=== PATIENT | male | born 1935 | race Caucasian/White ===

== ENCOUNTER 2016-08-05 18:10 | Inpatient (IN) | payer MEDICARE ==
--- NOTE | 2016-08-05 18:55 | ER Document Report ---
ED Medical Screen (RME) - General Chief Complaint: General Weakness Stated Complaint: CHILLS/WEAKNESS/HEADACHE Time Seen by Provider: 08/05/16 18:47 Notes: The patient is a 81-year-old male, past medical history COPD, CAD s/p 2 stents, tremors/possible seizures, presents with 1 day of feeling off balance and generalized weakness. He was noticing that every time he stands, is falling off to the side. In addition, he had a diffuse mild headache that resolved after taking 3 baby ASA. He is usually short of breath at baseline due to his COPD. He denies current headache, increasing shortness of breath, chest pain, fevers, nausea, vomiting, numbness, tingling, focal weakness or urinary symptoms. PE: Full strength and sensation in all 4 extremities, no restricted distress, lungs clear to auscultation bilaterally, tachycardia I have greeted and performed a rapid initial assessment of this patient. A comprehensive ED assessment and evaluation of the patient, analysis of test results and completion of the medical decision making process will be conducted by additional ED providers. TRAVEL OUTSIDE OF THE [place] IN LAST 30 DAYS: No - Related Data Allergies/Adverse Reactions: codeine Allergy (Verified 08/05/16 18:20) Past Medical History Renal/ Medical History: Denies: Hx Peritoneal Dialysis Physical Exam - Vital signs Vitals: Temp 98.4 F 08/05/16 18:20 Course - Vital Signs Vital signs: Temp Pulse Resp BP Pulse Ox 98.4 F 116 H 20 148/57 H 87 L 08/05/16 18:20 08/05/16 18:23 08/05/16 18:23 08/05/16 18:23 08/05/16 18:23
[2016-08-05 19:45] LABS: HEMATOCRIT 43.3 % (37.9-51.0); HEMOGLOBIN 14.1 g/dL (13.5-17.0); MEAN CORPUSCULAR HEMOGLOBIN 28.6 pg (27.0-33.4); MEAN CORPUSCULAR HGB CONC 32.6 g/dL (32.0-36.0); MEAN CORPUSCULAR VOLUME 88 fl (80-97); RED BLOOD COUNT 4.93 10^6/uL (4.35-5.55); RED CELL DISTRIBUTION WIDTH 17.9 % (11.5-14.0); WHITE BLOOD COUNT 13.1 10^3/uL (4.0-10.5)
[2016-08-05 20:10] LABS: ANION GAP 15 (5-19); BLOOD UREA NITROGEN 17 mg/dL (7-20); CALCIUM 9.2 mg/dL (8.4-10.2); CARBON DIOXIDE 28 mmol/L (22-30); CHLORIDE 96 mmol/L (98-107); CREATINE KINASE 70 U/L (55-170); CREATININE RESULT 1.12 mg/dL (0.52-1.25); GLUCOSE 155 mg/dL (75-110); POTASSIUM 4.2 mmol/L (3.6-5.0); SODIUM 139.1 mmol/L (137-145)
[2016-08-05 20:19] LABS: BAND NEUTROPHILS % (MANUAL) 8 % (3-5); BASOPHILS % (MANUAL) 0 % (0-2); EOSINOPHILS % (MANUAL) 1 % (0-6); LYMPHOCYTES % (MANUAL) 5 % (13-45); TOTAL CELLS COUNTED 100
[2016-08-05 20:24] LABS: APPEARANCE,URINE SLIGHTLY-CLOUDY; BILIRUBIN,URINE NEGATIVE (NEGATIVE); GLUCOSE, URINE NEGATIVE (NEGATIVE); KETONES,URINE NEGATIVE (NEGATIVE); LEUKOCYTE ESTERASE,URINE NEGATIVE (NEGATIVE); NITRITE,URINE NEGATIVE (NEGATIVE); PROTEIN,URINE 100 mg/dL (NEGATIVE); URINE SPECIFIC GRAVITY 1.029; UROBILINOGEN,URINE NEGATIVE mg/dL (<2.0)
[2016-08-05 20:27] LABS: ANISOCYTOSIS 1+; OVALOCYTES SLIGHT; POIKILOCYTOSIS SLIGHT; POLYCHROMASIA SLIGHT; TOXIC GRANULATION SLIGHT; TROPONIN I < 0.012 ng/mL
[2016-08-05 20:28] LABS: PLATELET CLUMPS PRESENT
[2016-08-05] MEDS ORDERED: LEVOFLOXACIN 750 MG/D5W RTU 150 ML IV ONE (20:38)
[2016-08-05] MEDS ORDERED: CEFTRIAXONE 1 GM/D5W RTU 50 ML IV ONE (20:40)
--- NOTE | 2016-08-05 20:43 | ER Document Report ---
ED General - General Chief Complaint: General Weakness Stated Complaint: CHILLS/WEAKNESS/HEADACHE Time Seen by Provider: 08/05/16 18:47 Notes: Patient is a 81-year-old male comes emergency department for chief complaint of feeling weak, feeling chills, and barely being able to stand up without falling over since yesterday. states that he always seems to be falling towards the left side. He denies any focal numbness or weakness, no change in mental status, no change in respiratory status. Patient also vomited once after arrival to the emergency department. Patient denies any abdominal parenchymal flank pain, he states he had a headache but this resolved after he took aspirin before coming to the ED. Patient has COPD, not on home oxygen, patient states his normal oxygen saturation is about 90% on room air. TRAVEL OUTSIDE OF THE [place] IN LAST 30 DAYS: No - Related Data Allergies/Adverse Reactions: codeine Allergy (Verified 08/05/16 18:20) Past Medical History - General Information source: Patient, Relative - Social History Smoking Status: Former Smoker Frequency of alcohol use: None Drug Abuse: None Lives with: Spouse/Significant other Family History: Reviewed & Not Pertinent Patient has suicidal ideation: No Patient has homicidal ideation: No - Past Medical History Cardiac Medical History: Reports: Hx Coronary Artery Disease Pulmonary Medical History: Reports: Hx COPD Renal/ Medical History: Denies: Hx Peritoneal Dialysis Past Surgical History: Reports: Hx Cardiac Catheterization - Immunizations Immunizations up to date: Yes Hx Diphtheria, Pertussis, Tetanus Vaccination: Yes Review of Systems - Review of Systems Constitutional: See HPI EENT: No symptoms reported Cardiovascular: No symptoms reported Respiratory: No symptoms reported Gastrointestinal: No symptoms reported Genitourinary: No symptoms reported Male Genitourinary: No symptoms reported Musculoskeletal: No symptoms reported Skin: No symptoms reported Hematologic/Lymphatic: No symptoms reported Neurological/Psychological: See HPI Physical Exam - Vital signs Vitals: Temp 98.4 F 08/05/16 18:20 Interpretation: Normal - General General appearance: Other - Patient appears slightly under the weather, appears tired but remains responsive and oriented In distress: None - HEENT Head: Normocephalic, Atraumatic Eyes: Normal Pupils: PERRL - Respiratory Respiratory status: No respiratory distress Chest status: Nontender Breath sounds: Decreased air movement - Decreased breath sounds bilaterally with a few coarse breath sounds Chest palpation: Normal - Cardiovascular Rhythm: Regular, Tachycardia Heart sounds: Normal auscultation, S1 appreciated, S2 appreciated Murmur: No - Abdominal Inspection: Normal Distension: No distension Bowel sounds: Normal Tenderness: Nontender. No: Tender, Guarding Organomegaly: No organomegaly - Back Back: Normal, Nontender. No: Tender - Extremities General upper extremity: Normal inspection, Nontender, Normal color, Normal ROM , Normal temperature General lower extremity: Normal inspection, Nontender, Normal color, Normal ROM , Normal temperature, Normal weight bearing. No: Ash's sign - Neurological Neuro grossly intact: Yes Cognition: Normal Orientation: AAOx4 [place] Coma Scale Eye Opening: Spontaneous [place] Coma Scale Verbal: Oriented [place] Coma Scale Motor: Obeys Commands [place] Coma Scale Total: 15 Speech: Normal Cranial nerves: Normal Cerebellar coordination: Normal Motor strength normal: LUE, RUE, LLE, RLE Additional motor exam normals: Equal cloth picker Sensory: Normal - Psychological Associated symptoms: Normal affect, Normal mood - Skin Skin Temperature: Warm Skin Moisture: Dry Skin Color: Normal Course - Re-evaluation Re-evalutation: Patient is neurologically intact, oriented, has a negative CAT scan of the head. Patient slightly ill-appearing, unsteady on his feet, appears weak. Tachycardic, leukocytosis noted with 8% bandemia. Chemistry generally unremarkable. Chest x-ray shows patchy infiltrates near the perihilar area bilaterally. Clinical picture is suggestive of pneumonia. Patient has had pneumonia in the past with similar symptoms per , this was in the past year. Treating with Rocephin, Levaquin, blood cultures pending. Patient reevaluated, is not hypoxic when placed on oxygen, is not in respiratory distress, still has borderline tachycardia. Lactic acid is borderline at 2.4. No fever. Discussed with Dr. Cristina. Discussed with Dr. Goel, patient will be admitted to the hospital. Patient and state satisfaction in agreement. - Vital Signs Vital signs: Temp Pulse Resp BP Pulse Ox 98.9 F 106 H 3 L 151/74 H 96 08/06/16 02:00 08/06/16 02:34 08/06/16 02:34 08/06/16 02:00 08/06/16 02:00 - Laboratory Result Diagrams: 08/05/16 19:32 08/05/16 19:32 Laboratory results interpreted by me: 08/05/16 08/05/16 08/05/16 19:32 19:32 19:32 WBC 13.1 H RDW 17.9 H Band Neutrophils % 8 H Lymphocytes % (Manual) 5 L Abs Neuts (Manual) 11.3 H Chloride 96 L Glucose 155 H Lactic Acid 2.4 H Urine Protein 08/05/16 19:59 WBC RDW Band Neutrophils % Lymphocytes % (Manual) Abs Neuts (Manual) Chloride Glucose Lactic Acid Urine Protein 100 H Discharge - Discharge Clinical Impression: Weakness, Hypoxia Pneumonia Qualifiers: Pneumonia type: due to unspecified organism Laterality: bilateral Lung location : unspecified part of lung Qualified Code(s): J18.9 - Pneumonia, unspecified organism Condition: Stable Disposition: ADMITTED INPATIENT Admitting Provider: Hospitalist Unit Admitted: Telemetry
[2016-08-05 21:13] LABS: VENOUS BLOOD BASE EXCESS 1.4 mmol/L; VENOUS BLOOD HCO3 27.5 mmol/L (20-32); VENOUS BLOOD PCO2 48.9 mmHg (35-63); VENOUS BLOOD PH 7.37 (7.30-7.42)
[2016-08-05] MEDS: LORATADINE 10 MG TABLET PO SCH (22:16)
[2016-08-05] MEDS ORDERED: FLUTICASONE NASAL SPRAY 50 MCG/SPRY 120 SPRAY/16 GM ONE (23:21)
[2016-08-05] MEDS: IPRATROPIUM/ALBUTEROL 0.5-2.5 MG/3 ML AMPUL NEB SCH (23:28)
[2016-08-05] MEDS: NORMAL SALINE 1000 ML 1,000 ML IV SCH (23:28)
[2016-08-06] MEDS: ACETAMINOPHEN 325 MG TABLET PO PRN ×2 (03:20→15:42)
[2016-08-06 04:38] LABS: HEMATOCRIT 38.5 % (37.9-51.0); HEMOGLOBIN 12.4 g/dL (13.5-17.0); HGB HCT DIFFERENCE -1.3; MEAN CORPUSCULAR HEMOGLOBIN 28.2 pg (27.0-33.4); MEAN CORPUSCULAR HGB CONC 32.2 g/dL (32.0-36.0); MEAN CORPUSCULAR VOLUME 87 fl (80-97); RED CELL DISTRIBUTION WIDTH 17.5 % (11.5-14.0); WHITE BLOOD COUNT 12.1 10^3/uL (4.0-10.5)
[2016-08-06 04:58] LABS: ANION GAP 14 (5-19); BLOOD UREA NITROGEN 17 mg/dL (7-20); CALCIUM 8.5 mg/dL (8.4-10.2); CARBON DIOXIDE 24 mmol/L (22-30); CHLORIDE 98 mmol/L (98-107); CREATININE RESULT 0.95 mg/dL (0.52-1.25); GLUCOSE 161 mg/dL (75-110); POTASSIUM 4.3 mmol/L (3.6-5.0); SODIUM 136.1 mmol/L (137-145)
[2016-08-06] MEDS ORDERED: CHLORPHENIRAMINE MALEATE 4 MG TABLET PO ONE ×2 (05:12→10:00)
--- NOTE | 2016-08-06 05:14 | PDOC H&P ---
History of Present Illness Admission Date/PCP: 08/05/16 22:22 SONIA MENDOZA PA-C Patient complains of: Cough and weakness History of Present Illness: CLYDE CABRERA JR is a 81 year old male with a past medical history of partial seizures treated with Klonopin, COPD and chronic bronchitis who been in his usual state of health until [facility] 4 days prior to presentation with complaints of rhinorrhea and postnasal drip later developing a subjective fever and severe generalized weakness prompting to seek evaluation emergency room where his found to have leukocytosis, a chest x-ray with bilateral infiltrates and physical exam suggestive of pneumonia he is referred to the hospitalist for admission. He denies recent antibiotics, chest pain nausea vomiting. Past Medical History Cardiac Medical History: Reports: Coronary Artery Disease Pulmonary Medical History: Reports: Chronic Obstructive Pulmonary Disease (COPD) Psychiatric Medical History: Reports: Depression, General Anxiety Disorder, Other - Partial seizures treated with Klonopin Past Surgical History Past Surgical History: Reports: Cardiac Catheterization Social History Information Source: Patient Lives with: Spouse/Significant other Smoking Status: Former Smoker Number of Years Smokin Last Time Smoked: 2011 Frequency of Alcohol Use: None Hx Recreational Drug Use: No Hx Prescription Drug Abuse: No - Advance Directive Resuscitation Status: Full Code Family History Family History: COPD Parental Family History Reviewed: Yes Children Family History Reviewed: Yes Sibling(s) Family History Reviewed.: Yes Medication/Allergy Home Medications: Atorvastatin Calcium 40 mg PO QPM 08/06/16 Clonazepam [Clonazepam] 1.5 mg PO QPM 08/06/16 Escitalopram Oxalate 20 mg PO DAILY 08/06/16 Allergies/Adverse Reactions: codeine Allergy (Verified 08/05/16 18:20) Review of Systems Constitutional: PRESENT: chills, fatigue, fever(s), weakness. ABSENT: headache( s), weight gain, weight loss Eyes: ABSENT: visual disturbances Ears: ABSENT: hearing changes Cardiovascular: ABSENT: chest pain, dyspnea on exertion, edema, orthropnea, palpitations Respiratory: PRESENT: cough, dyspnea. ABSENT: hemoptysis Gastrointestinal: ABSENT: abdominal pain, constipation, diarrhea, hematemesis, hematochezia, nausea, vomiting Genitourinary: ABSENT: dysuria, hematuria Musculoskeletal: PRESENT: muscle weakness. ABSENT: joint swelling Integumentary: ABSENT: rash, wounds Neurological: ABSENT: abnormal gait, abnormal speech, confusion, dizziness, focal weakness, syncope Psychiatric: ABSENT: anxiety, depression, homidical ideation, suicidal ideation Endocrine: ABSENT: cold intolerance, heat intolerance, polydipsia, polyuria Hematologic/Lymphatic: ABSENT: easy bleeding, easy bruising Physical Exam Vital Signs: Temp Pulse Resp BP Pulse Ox 98.9 F 106 H 3 L 151/74 H 96 08/06/16 02:00 08/06/16 02:34 08/06/16 02:34 08/06/16 02:00 08/06/16 02:00 General appearance: PRESENT: cooperative, mild distress Head exam: PRESENT: atraumatic, normocephalic Eye exam: PRESENT: conjunctiva pink, EOMI, PERRLA. ABSENT: scleral icterus Ear exam: PRESENT: normal external ear exam Mouth exam: PRESENT: moist, tongue midline Neck exam: ABSENT: carotid bruit, JVD, lymphadenopathy, thyromegaly Respiratory exam: PRESENT: crackles, prolonged expiratory phas, rhonchi, symmetrical, tachypnea. ABSENT: accessory muscle use, unlabored Cardiovascular exam: PRESENT: RRR, systolic murmur - Systolic ejection murmur radiating to the carotids bilaterally. ABSENT: diastolic murmur, rubs Pulses: PRESENT: normal dorsalis pedis pul Vascular exam: PRESENT: normal capillary refill GI/Abdominal exam: PRESENT: normal bowel sounds, soft. ABSENT: distended, guarding, mass, organolmegaly, rebound, tenderness Rectal exam: PRESENT: deferred Extremities exam: PRESENT: full ROM. ABSENT: calf tenderness, clubbing, pedal edema Neurological exam: PRESENT: alert, awake, oriented to person, oriented to place , oriented to time, oriented to situation, CN II-XII grossly intact. ABSENT: motor sensory deficit Psychiatric exam: PRESENT: appropriate affect, normal mood. ABSENT: homicidal ideation, suicidal ideation Skin exam: PRESENT: dry, intact, warm. ABSENT: cyanosis, rash Results Laboratory Results: 08/06/16 03:50 08/06/16 03:50 08/05/16 08/06/16 08/06/16 23:30 03:50 03:50 WBC 12.1 H RBC 4.40 Hgb 12.4 L Hct 38.5 MCV 87 MCH 28.2 MCHC 32.2 RDW 17.5 H Plt Count 208 Seg Neutrophils % Not Reportable Lymphocytes % Not Reportable Monocytes % Not Reportable Eosinophils % Not Reportable Basophils % Not Reportable Absolute Neutrophils Not Reportable Absolute Lymphocytes Not Reportable Absolute Monocytes Not Reportable Absolute Eosinophils Not Reportable Absolute Basophils Not Reportable Sodium 136.1 L Potassium 4.3 Chloride 98 Carbon Dioxide 24 Anion Gap 14 BUN 17 Creatinine 0.95 Est GFR ( Amer) > 60 Est GFR (Non-Af Amer) > 60 Glucose 161 H Lactic Acid 2.1 Calcium 8.5 Impressions: Chest X-Ray 08/05/16 18:56 IMPRESSION: PATCHY BIBASILAR AIRSPACE OPACITIES MAY REPRESENT SUBSEGMENTAL ATELECTASIS, ASPIRATION, OR DEVELOPING PNEUMONIA. Head CT 08/05/16 18:56 IMPRESSION: CHRONIC CHANGES OF ATROPHY AND MICROVASCULAR ISCHEMIA. NO ACUTE PROCESS. Assessment & Plan - Diagnosis (1) COPD exacerbation Is this a current diagnosis for this admission?: YesPlan: Albuterol Atrovent and flutter valve (2) Allergic sinusitis Is this a current diagnosis for this admission?: YesPlan: Chlorpheniramine, Claritin and Flonase (3) Pneumonia Qualifiers: Pneumonia type: due to unspecified organism Laterality: bilateral Lung location: unspecified part of lung Qualified Code(s): J18.9 - Pneumonia , unspecified organism Is this a current diagnosis for this admission?: YesPlan: New problem telemetry admission with pneumonia care set, empiric antibiotics follow-up CBC chemistry and blood culture (4) Weakness Is this a current diagnosis for this admission?: YesPlan: Correction of the acute illness reevaluation may require physical therapy - Time Time Spent: 30 to 50 Minutes - Inpatient Certification Medical Necessity: Need Close Monitoring Due to Risk of Patient Decompensation
[2016-08-06 05:15] LABS: BAND NEUTROPHILS % (MANUAL) 7 % (3-5); BASOPHILS % (MANUAL) 0 % (0-2); EOSINOPHILS % (MANUAL) 0 % (0-6); LYMPHOCYTES % (MANUAL) 5 % (13-45); TOTAL CELLS COUNTED 100
[2016-08-06 05:20] LABS: ANISOCYTOSIS SLIGHT; TOXIC GRANULATION SLIGHT
[2016-08-06 05:22] LABS: POLYCHROMASIA SLIGHT; TARGET CELLS SLIGHT
[2016-08-06 05:23] LABS: OVALOCYTES SLIGHT; POIKILOCYTOSIS SLIGHT
[2016-08-06] MEDS: FLUTICASONE NASAL SPRAY 50 MCG/SPRY 120 SPRAY/16 GM NASL SCH ×3 (05:56→21:33)
[2016-08-06] MEDS: HEPARIN SOD (PORCINE) 5,000 UNIT/ML 1 ML SYRINGE SUBCUT SCH ×3 (06:04→21:33)
[2016-08-06] MEDS: IPRATROPIUM/ALBUTEROL 0.5-2.5 MG/3 ML AMPUL NEB SCH ×3 (08:10→20:13)
[2016-08-06] MEDS: GUAIFENESIN 600 MG TABLET.SA PO SCH ×2 (09:51→21:33)
[2016-08-06] MEDS: LEVOFLOXACIN 750 MG/D5W RTU 150 ML IV SCH (09:51)
[2016-08-06] MEDS: ESCITALOPRAM OXALATE 10 MG TABLET PO SCH (09:52)
[2016-08-06] MEDS ORDERED: (PENDING PHARMACY ID) (Escitalopram Oxalate [Escitalopram Oxalate] 20 MG) PO SCH (10:00)
[2016-08-06] MEDS ORDERED: CEFEPIME 2 GM/D5W RTU 50 ML IV SCH (10:00)
[2016-08-06] MEDS ORDERED: CEFEPIME HCL 2 GM in DEXTROSE 5%-WATER 50 ML IV ONE (11:00)
--- NOTE | 2016-08-06 13:04 | EKG REPORT ---
SEVERITY:- BORDERLINE ECG - SINUS TACHYCARDIA BORDERLINE T ABNORMALITIES, ANT-LAT LEADS : Confirmed by: Lázaro Gan 06-Aug-2016 13:03:12
[2016-08-06] MEDS: METHYLPREDNISOLONE INJ 40 MG/1 ML SDV IV SCH ×2 (13:43→21:33)
[2016-08-06] MEDS: NORMAL SALINE 1000 ML 1,000 ML IV SCH (13:43)
--- NOTE | 2016-08-06 14:25 | PDOC PROGRESS REPORT ---
Subjective Progress Note for:: 08/06/16 Subjective:: Patient seen on morning rounds. He is resting in bed. He states he feels better than he did last night he came in. He has a nonproductive cough at the present time. He denies any significant shortness of breath or dyspnea. His denies any wheezing. He denies any chest pain, palpitations or dizziness. He denies any nausea, vomiting, diarrhea or abdominal pain. He denies any significant arthralgias or myalgias. Rest of review of systems is negative. Physical Exam Vital Signs: Temp Pulse Resp BP Pulse Ox 99.0 F 99 16 106/48 L 96 08/06/16 07:45 08/06/16 14:00 08/06/16 13:46 08/06/16 07:45 08/06/16 13:46 Intake & Output 08/05/16 08/06/16 08/07/16 06:59 06:59 06:59 Intake Total 200 345 Balance 200 345 Weight 88.2 kg General appearance: PRESENT: no acute distress, well-developed, well-nourished Head exam: PRESENT: atraumatic, normocephalic Eye exam: PRESENT: conjunctiva pink, EOMI, PERRLA. ABSENT: scleral icterus Ear exam: PRESENT: normal external ear exam Mouth exam: PRESENT: dry mucosa Neck exam: ABSENT: carotid bruit, JVD, lymphadenopathy, thyromegaly Respiratory exam: PRESENT: crackles, symmetrical, unlabored. ABSENT: rales, rhonchi, wheezes Cardiovascular exam: PRESENT: RRR. ABSENT: diastolic murmur, rubs, systolic murmur Pulses: PRESENT: normal dorsalis pedis pul Vascular exam: PRESENT: normal capillary refill GI/Abdominal exam: PRESENT: normal bowel sounds, soft. ABSENT: distended, guarding, mass, organolmegaly, rebound, tenderness Rectal exam: PRESENT: deferred Extremities exam: PRESENT: full ROM. ABSENT: calf tenderness, clubbing, pedal edema Neurological exam: PRESENT: alert, awake, oriented to person, oriented to place , oriented to time, oriented to situation, CN II-XII grossly intact. ABSENT: motor sensory deficit Psychiatric exam: PRESENT: appropriate affect, normal mood. ABSENT: homicidal ideation, suicidal ideation Skin exam: PRESENT: dry, intact, warm. ABSENT: cyanosis, rash Results Laboratory Results: 08/06/16 03:50 08/06/16 03:50 08/05/16 08/06/16 08/06/16 23:30 03:50 03:50 WBC 12.1 H RBC 4.40 Hgb 12.4 L Hct 38.5 MCV 87 MCH 28.2 MCHC 32.2 RDW 17.5 H Plt Count 208 Seg Neutrophils % Not Reportable Lymphocytes % Not Reportable Monocytes % Not Reportable Eosinophils % Not Reportable Basophils % Not Reportable Absolute Neutrophils Not Reportable Absolute Lymphocytes Not Reportable Absolute Monocytes Not Reportable Absolute Eosinophils Not Reportable Absolute Basophils Not Reportable Sodium 136.1 L Potassium 4.3 Chloride 98 Carbon Dioxide 24 Anion Gap 14 BUN 17 Creatinine 0.95 Est GFR ( Amer) > 60 Est GFR (Non-Af Amer) > 60 Glucose 161 H Lactic Acid 2.1 Calcium 8.5 Impressions: Chest X-Ray 08/05/16 18:56 IMPRESSION: PATCHY BIBASILAR AIRSPACE OPACITIES MAY REPRESENT SUBSEGMENTAL ATELECTASIS, ASPIRATION, OR DEVELOPING PNEUMONIA. Head CT 08/05/16 18:56 IMPRESSION: CHRONIC CHANGES OF ATROPHY AND MICROVASCULAR ISCHEMIA. NO ACUTE PROCESS. Assessment & Plan - Diagnosis (1) Pneumonia Qualifiers: Pneumonia type: due to unspecified organism Laterality: bilateral Lung location: unspecified part of lung Qualified Code(s): J18.9 - Pneumonia , unspecified organism Is this a current diagnosis for this admission?: YesPlan: Continue IV antibiotics, IV steroids and nebulizer treatments. (2) Hypoxia Plan: Continue supplemental oxygen as needed (3) COPD exacerbation Is this a current diagnosis for this admission?: YesPlan: Continue IV steroids and nebulizer treatments. (4) Weakness Is this a current diagnosis for this admission?: Yes (5) Allergic sinusitis Is this a current diagnosis for this admission?: YesPlan: Continue Zyrtec and Flonase - Time Time Spent with patient: 25-34 minutes Critical Time spent with patient: 15-24 minutes Medications reviewed and adjusted accordingly: Yes
[2016-08-06] MEDS: ATORVASTATIN CALCIUM 40 MG TABLET PO SCH (17:45)
[2016-08-06] MEDS: CLONAZEPAM 1 MG TABLET PO SCH (17:46)
[2016-08-06] MEDS: CEFEPIME HCL 2 GM in DEXTROSE 5%-WATER 50 ML IV SCH (21:33)
[2016-08-06] MEDS: LORATADINE 10 MG TABLET PO SCH (21:33)
[2016-08-07] MEDS: IPRATROPIUM/ALBUTEROL 0.5-2.5 MG/3 ML AMPUL NEB SCH ×4 (01:42→20:00)
[2016-08-07 04:52] LABS: HEMATOCRIT 37.1 % (37.9-51.0); HEMOGLOBIN 11.9 g/dL (13.5-17.0); HGB HCT DIFFERENCE -1.4; MEAN CORPUSCULAR HEMOGLOBIN 28.2 pg (27.0-33.4); MEAN CORPUSCULAR HGB CONC 32.2 g/dL (32.0-36.0); MEAN CORPUSCULAR VOLUME 88 fl (80-97); RED BLOOD COUNT 4.23 10^6/uL (4.35-5.55); RED CELL DISTRIBUTION WIDTH 17.6 % (11.5-14.0); WHITE BLOOD COUNT 9.3 10^3/uL (4.0-10.5)
[2016-08-07 05:12] LABS: ANION GAP 7 (5-19); BLOOD UREA NITROGEN 21 mg/dL (7-20); CALCIUM 8.8 mg/dL (8.4-10.2); CARBON DIOXIDE 26 mmol/L (22-30); CHLORIDE 104 mmol/L (98-107); CREATININE RESULT 0.84 mg/dL (0.52-1.25); GLUCOSE 180 mg/dL (75-110); POTASSIUM 5.1 mmol/L (3.6-5.0); SODIUM 136.6 mmol/L (137-145)
[2016-08-07 05:13] LABS: ANISOCYTOSIS 1+; BAND NEUTROPHILS % (MANUAL) 1 % (3-5); BASOPHILS % (MANUAL) 0 % (0-2); EOSINOPHILS % (MANUAL) 0 % (0-6); LYMPHOCYTES % (MANUAL) 7 % (13-45); TOTAL CELLS COUNTED 100
[2016-08-07 05:15] LABS: POIKILOCYTOSIS 1+; POLYCHROMASIA SLIGHT; TOXIC GRANULATION SLIGHT
[2016-08-07 05:16] LABS: TARGET CELLS SLIGHT
[2016-08-07 05:17] LABS: BURR CELLS SLIGHT
[2016-08-07] MEDS: METHYLPREDNISOLONE INJ 40 MG/1 ML SDV IV SCH ×3 (05:28→22:31)
[2016-08-07] MEDS: HEPARIN SOD (PORCINE) 5,000 UNIT/ML 1 ML SYRINGE SUBCUT SCH ×3 (05:28→22:31)
[2016-08-07] MEDS: FLUTICASONE NASAL SPRAY 50 MCG/SPRY 120 SPRAY/16 GM NASL SCH ×2 (09:58→22:31)
[2016-08-07] MEDS: ESCITALOPRAM OXALATE 10 MG TABLET PO SCH (09:58)
[2016-08-07] MEDS: GUAIFENESIN 600 MG TABLET.SA PO SCH ×2 (09:58→22:31)
[2016-08-07] MEDS: LEVOFLOXACIN 750 MG/D5W RTU 150 ML IV SCH (09:58)
[2016-08-07] MEDS: CEFEPIME HCL 2 GM in DEXTROSE 5%-WATER 50 ML IV SCH ×2 (10:00→22:31)
--- NOTE | 2016-08-07 14:25 | PDOC PROGRESS REPORT ---
Subjective Progress Note for:: 08/07/16 Subjective:: Patient seen on morning rounds. He is resting in bedside chair, He states he his breathing continues to improve. He continues to have a nonproductive harsh cough with some inspiratory burning on deep inhalation. He denies any significant shortness of breath or dyspnea. His denies any wheezing. He denies any chest pain, palpitations or dizziness. He denies any nausea, vomiting, diarrhea or abdominal pain. He denies any significant arthralgias or myalgias. Rest of review of systems is negative. Physical Exam Vital Signs: Temp Pulse Resp BP Pulse Ox 97.3 F 77 16 119/53 L 86 L 08/07/16 07:24 08/07/16 07:56 08/07/16 07:56 08/07/16 07:24 08/07/16 07:56 Intake & Output 08/06/16 08/07/16 08/08/16 06:59 06:59 06:59 Intake Total 200 3070 Balance 200 3070 Weight 88.2 kg 91.8 kg General appearance: PRESENT: no acute distress, well-developed, well-nourished Head exam: PRESENT: atraumatic, normocephalic Eye exam: PRESENT: conjunctiva pink, EOMI, PERRLA. ABSENT: scleral icterus Ear exam: PRESENT: normal external ear exam Mouth exam: PRESENT: moist, tongue midline Neck exam: ABSENT: carotid bruit, JVD, lymphadenopathy, thyromegaly Respiratory exam: PRESENT: crackles, symmetrical, unlabored - right base Cardiovascular exam: PRESENT: RRR. ABSENT: diastolic murmur, rubs, systolic murmur Pulses: PRESENT: normal dorsalis pedis pul Vascular exam: PRESENT: normal capillary refill GI/Abdominal exam: PRESENT: normal bowel sounds, soft. ABSENT: distended, guarding, mass, organolmegaly, rebound, tenderness Rectal exam: PRESENT: deferred Extremities exam: PRESENT: full ROM. ABSENT: calf tenderness, clubbing, pedal edema Neurological exam: PRESENT: alert, awake, oriented to person, oriented to place , oriented to time, oriented to situation, CN II-XII grossly intact. ABSENT: motor sensory deficit Psychiatric exam: PRESENT: appropriate affect, normal mood. ABSENT: homicidal ideation, suicidal ideation Skin exam: PRESENT: dry, intact, warm. ABSENT: cyanosis, rash Results Laboratory Results: 08/07/16 04:24 08/07/16 04:24 08/07/16 08/07/16 04:24 04:24 WBC 9.3 RBC 4.23 L Hgb 11.9 L Hct 37.1 L MCV 88 MCH 28.2 MCHC 32.2 RDW 17.6 H Plt Count 196 Seg Neutrophils % Not Reportable Lymphocytes % Not Reportable Monocytes % Not Reportable Eosinophils % Not Reportable Basophils % Not Reportable Absolute Neutrophils Not Reportable Absolute Lymphocytes Not Reportable Absolute Monocytes Not Reportable Absolute Eosinophils Not Reportable Absolute Basophils Not Reportable Sodium 136.6 L Potassium 5.1 H Chloride 104 Carbon Dioxide 26 Anion Gap 7 BUN 21 H Creatinine 0.84 Est GFR ( Amer) > 60 Est GFR (Non-Af Amer) > 60 Glucose 180 H Calcium 8.8 Impressions: Chest X-Ray 08/05/16 18:56 IMPRESSION: PATCHY BIBASILAR AIRSPACE OPACITIES MAY REPRESENT SUBSEGMENTAL ATELECTASIS, ASPIRATION, OR DEVELOPING PNEUMONIA. Head CT 08/05/16 18:56 IMPRESSION: CHRONIC CHANGES OF ATROPHY AND MICROVASCULAR ISCHEMIA. NO ACUTE PROCESS. Assessment & Plan - Diagnosis (1) Pneumonia Qualifiers: Pneumonia type: due to unspecified organism Laterality: bilateral Lung location: unspecified part of lung Qualified Code(s): J18.9 - Pneumonia , unspecified organism Is this a current diagnosis for this admission?: YesPlan: Continue IV antibiotics, IV steroids and nebulizer treatments. (2) Hypoxia Plan: Will attempt to wean oxygen today. Expect he has underlying COPD not diagnosed with mild hypercapnea as well. Will refer to Dr Ball as an outpatient post discharge (3) COPD exacerbation Is this a current diagnosis for this admission?: YesPlan: Continue IV steroids and nebulizer treatments. (4) Weakness Is this a current diagnosis for this admission?: YesPlan: Improved. Nursing increasing activity (5) Allergic sinusitis Is this a current diagnosis for this admission?: Yes - Time Time Spent with patient: 25-34 minutes Critical Time spent with patient: 15-24 minutes Anticipated discharge: Home Within: within 24 hours
[2016-08-07] MEDS: CLONAZEPAM 1 MG TABLET PO SCH (17:29)
[2016-08-07] MEDS: ATORVASTATIN CALCIUM 40 MG TABLET PO SCH (17:29)
[2016-08-07] MEDS: LORATADINE 10 MG TABLET PO SCH (22:31)
[2016-08-08] MEDS: IPRATROPIUM/ALBUTEROL 0.5-2.5 MG/3 ML AMPUL NEB SCH ×2 (02:09→08:55)
[2016-08-08] MEDS: HEPARIN SOD (PORCINE) 5,000 UNIT/ML 1 ML SYRINGE SUBCUT SCH (05:15)
[2016-08-08] MEDS: METHYLPREDNISOLONE INJ 40 MG/1 ML SDV IV SCH (05:15)
[2016-08-08 09:00] VITALS: BP 126/56
[2016-08-08] MEDS: ESCITALOPRAM OXALATE 10 MG TABLET PO SCH (10:02)
[2016-08-08] MEDS: FLUTICASONE NASAL SPRAY 50 MCG/SPRY 120 SPRAY/16 GM NASL SCH (10:02)
[2016-08-08] MEDS: GUAIFENESIN 600 MG TABLET.SA PO SCH (10:03)
[2016-08-08] MEDS: LEVOFLOXACIN 750 MG/D5W RTU 150 ML IV SCH (10:03)
[2016-08-08] MEDS: CEFEPIME HCL 2 GM in DEXTROSE 5%-WATER 50 ML IV SCH (12:30)
--- NOTE | 2016-08-08 14:10 | PDOC DISCHARGE SUMMARY ---
General - Admit/Disc Date/PCP Admission Date/Primary Care Provider: 08/05/16 22:22 SONIA MENDOZA PA-C Discharge Date: 08/08/16 - Discharge Diagnosis (1) Pneumonia Is this a current diagnosis for this admission?: YesSummary: Continue Levaquin by mouth daily for the next 7 days. Mucinex twice daily as needed. Albuterol inhaler 2 puffs every 4 hours for cough and wheezing. (2) Hypoxia Summary: Resolved (3) COPD exacerbation Is this a current diagnosis for this admission?: YesSummary: Resolved. Will arrange follow-up with patient for pulmonology referral as an outpatient (4) Weakness Is this a current diagnosis for this admission?: YesSummary: Resolved (5) Allergic sinusitis Is this a current diagnosis for this admission?: YesSummary: Patient was placed on Flonase, Claritin and Singulair - Additional Information Resuscitation Status: Full Code Discharge Diet: Regular Discharge Activity: Activity As Tolerated, Balance Activity w/Rest Home Medications: Atorvastatin Calcium 40 mg PO QPM 08/06/16 Clonazepam 1.5 mg PO QPM 08/06/16 Escitalopram Oxalate 20 mg PO DAILY 08/06/16 Acetaminophen [Tylenol 325 mg Tablet] 650 mg PO Q4HP PRN tablet 08/08/16 Albuterol Sulfate [Proair Respiclick] 90 mcg IH Q4HP PRN #1 aer.[email or web address] 08/08/16 Fluticasone Propionate [Flonase Nasal Niles 50 Mcg/Niles 16 gm] 2 spray NASL Q12 spray.pump 08/08/16 Guaifenesin [Mucinex Sr 600 mg Tablet.sa] 1,200 mg PO Q12 tablet.sa 08/08/16 Levofloxacin [Levaquin 750 mg Tablet] 750 mg PO DAILY #7 tablet 08/08/16 Loratadine [Claritin 10 mg Tablet] 10 mg PO QHS tablet 08/08/16 Montelukast Sodium [Singulair 10 mg Tablet] 10 mg PO QHS #30 tablet 08/08/16 History of Present Illness Patient complains of: Shortness of breath, cough, headache and weakness History of Present Illness: CLYDE CABRERA JR is a 81 year old male with a past medical history of partial seizures treated with Klonopin, COPD and chronic bronchitis who been in his usual state of health until [facility] 4 days prior to presentation with complaints of rhinorrhea and postnasal drip later developing a subjective fever and severe generalized weakness prompting to seek evaluation emergency room where his found to have leukocytosis, a chest x-ray with bilateral infiltrates and physical exam suggestive of pneumonia he is referred to the hospitalist for admission. He denies recent antibiotics, chest pain nausea vomiting. Hospital Course Hospital Course: Patient was referred to the hospitalist service for admission. He is minimally on telemetry. He was started on IV broad-spectrum antibiotics after blood cultures 2 were obtained. He was given IV fluids has mild hypernatremia and dehydration. His confusion improved over the next 24 hours. He is able to increase his activity with nursing staff. He has had a nonproductive cough. Today he is weaned off of oxygen, oxygen saturations are 95% on room air. He feels ready for discharge. We'll obtain a pulmonary consult as an outpatient with Dr. Ball. Physical Exam Vital Signs: Temp Pulse Resp BP Pulse Ox 97.7 F 85 17 126/56 H 95 08/08/16 12:16 08/08/16 12:16 08/08/16 12:16 08/08/16 12:16 08/08/16 12:16 Intake & Output 08/07/16 08/08/16 08/09/16 06:59 06:59 06:59 Intake Total 3070 2210 Balance 3070 2210 Weight 91.8 kg 92.3 kg General appearance: PRESENT: no acute distress, well-developed, well-nourished Head exam: PRESENT: atraumatic, normocephalic Eye exam: PRESENT: conjunctiva pink, EOMI, PERRLA. ABSENT: scleral icterus Ear exam: PRESENT: normal external ear exam Mouth exam: PRESENT: moist, tongue midline Neck exam: ABSENT: carotid bruit, JVD, lymphadenopathy, thyromegaly Respiratory exam: PRESENT: crackles - right base. ABSENT: rales, rhonchi, wheezes Cardiovascular exam: PRESENT: RRR. ABSENT: diastolic murmur, rubs, systolic murmur Pulses: PRESENT: normal dorsalis pedis pul Vascular exam: PRESENT: normal capillary refill GI/Abdominal exam: PRESENT: normal bowel sounds, soft. ABSENT: distended, guarding, mass, organolmegaly, rebound, tenderness Rectal exam: PRESENT: deferred Extremities exam: PRESENT: full ROM. ABSENT: calf tenderness, clubbing, pedal edema Neurological exam: PRESENT: alert, awake, oriented to person, oriented to place , oriented to time, oriented to situation, CN II-XII grossly intact. ABSENT: motor sensory deficit Psychiatric exam: PRESENT: appropriate affect, normal mood. ABSENT: homicidal ideation, suicidal ideation Skin exam: PRESENT: dry, intact, warm. ABSENT: cyanosis, rash Results Laboratory Results: 08/07/16 04:24 08/07/16 04:24 Impressions: Chest X-Ray 08/05/16 18:56 IMPRESSION: PATCHY BIBASILAR AIRSPACE OPACITIES MAY REPRESENT SUBSEGMENTAL ATELECTASIS, ASPIRATION, OR DEVELOPING PNEUMONIA. Head CT 08/05/16 18:56 IMPRESSION: CHRONIC CHANGES OF ATROPHY AND MICROVASCULAR ISCHEMIA. NO ACUTE PROCESS. Qualifiers PATEINT BEING DISCHARGED WITH ANY OF THE FOLLOWING DIAGNOSIS?: No Plan Discharge Plan: Home with Time Spent: Less than 30 Minutes
== END 2016-08-08 13:00 | disposition home or self-care (01) | DRG 190 ==
LOC: ER 18:10 → EH 22:13 → UNDOADMIN 22:13 → EH 22:22 → 4N 08-06 02:02
PROVIDERS: ADMIT Internal Medicine; ATTEND Internal Medicine
PROC: 3E0F73Z Introduction of Anti-inflammatory into Respiratory Tract, Via Natural or Artificial Opening (ICD-10-PCS; principal; 2016-08-06)
DX: J44.0 Chronic obstructive pulmonary disease with (acute) lower respiratory infection (principal); J18.9 Pneumonia, unspecified organism; E87.0 Hyperosmolality and hypernatremia; J44.1 Chronic obstructive pulmonary disease with (acute) exacerbation; J30.9 Allergic rhinitis, unspecified; E86.0 Dehydration; G40.909 Epilepsy, unspecified, not intractable, without status epilepticus; I25.10 Atherosclerotic heart disease of native coronary artery without angina pectoris; F32.9 Major depressive disorder, single episode, unspecified; F41.1 Generalized anxiety disorder; Z87.891 Personal history of nicotine dependence; R09.02 Hypoxemia
CPT/HCPCS: 36415; 70450; 71010; 80048; 81001; 82550; 82803; 83605; 83880; 84484; 85025; 87040; 93005; 93010; 94640; 94667; 94668; 96365; 96375; 99285; J0692; J0696; J1644; J1956; J2920; J3490; J7030; J7620

== ENCOUNTER → 2016-10-03 | Outpatient (CLI) | payer MEDICARE ==
--- NOTE | 2016-10-03 13:04 | RADIOLOGY REPORT (SQ) ---
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 Images reviewed with lung, soft tissue and bone windows. Reconstructed coronal and sagittal MPR images reviewed. All images st ored on PACS. All CT scanners at this facility use dose modulation, iterative reconstruction, and/or weight based d osing when appropriate to reduce radiation dose to as low as reasonably achievable (ALARA). [facility]: Dose Right [facility]: CareDose [facility]: Dose Right [facility]: Teradose 4D [facility]: [employer] RADIATION DOSE: Up-to-date CT equipment and radiation dose reduction techniques were employed. CTDIv ol: 9.5 mGy. DLP: 408 mGy-cm. mGy. LIMITATIONS: No technical limitations. FINDINGS: LUNGS AND PLEURA: There is a parenchymal opacity with soft tissue density in the right low er lobe. Overall opacity measures 3.9 x 2.2 cm with a more solid component measuring 2.4 x 1.5 cm. No effusions. Minimal scarring at the right base. Areas of scarring at the left base. HILAR AND MEDIASTINAL STRUCTURES: No identified masses or abnormal nodes. No obvious aneurysm. HEART AND VASCULAR STRUCTURES: Marked coronary artery calcification. UPPER ABDOMEN: No significant findings. Limited exam. THYROID AND OTHER SOFT TISSUES: No masses. No adenopathy. BONES: No significant finding. HARDWARE: None in the chest. OTHER: No other significant findings. IMPRESSION: Parenchymal opacity with solid component in the right lower lobe. The more solid compon ent measures 2.4 x 1.5 cm. Marked coronary artery calcification. COMMENT: Consider PET-CT to evaluate the right lower lobe parenchymal density. TECHNICAL DOCUMENTATION: JOB ID: [id number] Quality ID # [id number]: Final reports with documentation of one or more dose reduction techniques (e.g., Au tomated exposure control, adjustment of the mA and/or kV according to patient size, use of iterative reconstruction technique) 2010 [employer]- All Rights Reserved
== END ==
LOC: RAD 09:48
PROVIDERS: ATTEND Internal Medicine Pulmonary Disease
DX: J43.2 Centrilobular emphysema (principal)
CPT/HCPCS: 71250

== ENCOUNTER → 2016-12-26 | Outpatient (CLI) | payer MEDICARE ==
--- NOTE | 2016-12-26 14:02 | XCELERA REPORT ---
[address] [address] Transthoracic Echocardiogram Report Name: CLYDE CABRERA JR Age: 81 yrs Gender: Male : 1935 Patient Status: Outpatient Patient Location: Study Date: 12/26/2016 08:25 AM Height: 74 in Weight: 191 lb BSA: 2.1 m2 Procedure: A two-dimensional transthoracic echocardiogram with color flow and Doppler was performed. The study was technically difficult with many images being suboptimal in quality. Reason For Study: DYSPNEA History: DYSPNEA. Ordering Physician: ROS WILLIAMSON Performed By: Meli Shaikh Interpretation Summary The left ventricle is normal in size. There is normal left ventricular wall thickness. LV EF is 60% Left ventricular systolic function is normal. Doppler measurements suggest impaired left ventricular relaxation, which is associated with grade I/IV or mild diastolic dysfunction The left ventricular wall motion is normal. The right ventricle is grossly normal size. The left atrial size is normal. There is no evidence of mitral valve prolapse. There is no mitral valve stenosis. There is a trace amount of mitral regurgitation There is no aortic valvular vegetation. There is moderate aortic stenosis There is a peak gradient of 46 mm of Hg. There is a mild amount of aortic regurgitation There is no LVOT obstruction. There is no tricuspid stenosis. There is a trace amount of tricuspid regurgitation RVSP is 31 mm of Hg , with RA mean of 5, and is just abbove the upper normal limit of 30 mm of Hg. There is no pericardial effusion. MMode/2D Measurements & Calculations RVDd: 2.7 cm LVIDd: 4.7 cm FS: 24.2 % Ao root diam: 2.4 cm IVSd: 0.88 cm LVIDs: 3.6 cm EDV(Teich): 102.3 ml LVPWd: 0.87 cmESV(Teich): 53.0 ml Ao root area: 4.4 cm2 EF(Teich): 48.2 % LVOT diam: 2.1 cm LVOT area: 3.4 cm2 Doppler Measurements & Calculations MV E max joey: MV dec slope: Ao V2 max: AI max joey: 52.1 cm/sec 212.0 cm/sec2 338.4 cm/sec 296.3 cm/sec MV A max joey: MV dec time: Ao max PG: AI max P.3 cm/sec 0.25 sec 45.8 mmHg 35.1 mmHg MV E/A: 0.80 Ao V2 mean: AI dec slope: 250.5 cm/sec 148.4 cm/sec2 Ao mean PG: AI P1/2t: 28.1 mmHg 584.8 msec Ao V2 VTI: 80.1 cm JA(I,D): 0.88 cm2 JA(V,D): 0.79 cm2 LV V1 max PG: SV(LVOT): 70.6 ml PA V2 max: TR max joey: 2.5 mmHg 89.7 cm/sec 253.1 cm/sec LV V1 mean PG: PA max PG: TR max P.5 mmHg 3.2 mmHg 25.6 mmHg LV V1 max: 78.9 cm/sec LV V1 mean: 58.1 cm/sec LV V1 VTI: 20.8 cm Left Ventricle The left ventricle is normal in size. There is normal left ventricular wall thickness. LV EF is 60%. Left ventricular systolic function is normal. Doppler measurements suggest impaired left ventricular relaxation, which is associated with grade I/IV or mild diastolic dysfunction. The left ventricular wall motion is normal. There is no thrombus. Right Ventricle The right ventricle is grossly normal size. The right ventricle is not well visualized secondary to technical limitations. Atria The right atrium is normal. The left atrial size is normal. Mitral Valve There is no evidence of mitral valve prolapse. There is no vegetation seen on the mitral valve. There is no mitral valve stenosis. There is a trace amount of mitral regurgitation. Aortic Valve There is no aortic valvular vegetation. There is moderate aortic stenosis. There is a peak gradient of 46 mm of Hg. There is no LVOT obstruction. There is a mild amount of aortic regurgitation. Tricuspid Valve There is no tricuspid stenosis. There is a trace amount of tricuspid regurgitation. RVSP is 31 mm of Hg , with RA mean of 5, and is just abbove the upper normal limit of 30 mm of Hg. Pulmonic Valve There is no pulmonic valvular stenosis. There is no pulmonic valvular regurgitation. Great Vessels The aortic root is not well visualized but is probably normal size. Effusions There is no pericardial effusion. : ROS WILLIAMSON > Pamela Billy
== END ==
LOC: SP 08:17
PROVIDERS: ATTEND Internal Medicine Pulmonary Disease
DX: R06.00 Dyspnea, unspecified (principal)
CPT/HCPCS: 93306

== ENCOUNTER → 2017-01-12 | Outpatient (CLI) | payer MEDICARE ==
[~2017-01-12] MED LIST: AMINOPHYLLINE INJ/PF 250 MG/10 ML SDV IV ONE; REGADENOSON INJ 0.4 MG/5 ML DISP.SYRIN IV ONE
--- NOTE | 2017-01-12 14:04 | DRAGON STRESS TEST REPORT ---
INTRAVENOUS LEXISCAN CARDIOLITE STRESS TEST USING SINGLE PHOTON EMMISION COMPUTERIZED TOMOGRAPHIC. DATE OF PROCEDURE: January 12, 2017 INDICATION : Shortness of breath CARDIAC RISK FACTORS: Known CAD with prior stent, diabetes and hypertension RESTING EKG: Sinus rhythm, no baseline ST-T wave changes noted STRESS EKG: No significant changes noted with LexiScan bolus REASON FOR TERMINATION: Protocol. PROCEDURE REPORT: Baseline heart rate 83 beats per minute with blood pressure of 133/59. Patient had no significant complaints. Heart rate at 2 minutes post bolus 96 with a blood pressure of 122/61. 3 minutes post bolus heart rate 96 with blood pressure of 120/58. No significant EKG changes were noted. Patient had no significant complaints during the procedure or postprocedure. Patient injected with Aminophyllin 75 mg at 3 minutes or later after Lexiscan bolus. CONCLUSIONS: Normal EKG and hemodynamic response to IV LexiScan. NUCLEAR DATA: At rest the patient was given 12.35 millicuries of technetium 99 sestamibi injected intravenously. As per protocol rest gated SPECT images were obtained. Subsequently the patient was given intravenous LexiScan at a dose of 0.4 mg in 5 mL intravenously, followed by flush with normal saline. Subsequently the stress dose of 37.5 millicuries of technetium 99 sestamibi was injected intravenously. As per protocol stress gated images were obtained. NUCLEAR INTERPRETATION: Both raw and processed data were used for interpretation. Visual, qualitative, computer-generated quantitative data was used. There was good myocardial uptake of technetium compound. Motion artifact and soft tissue attenuations were noted. Increased visceral uptake was noted. No definitive areas of transient perfusion defect noted. No definitive areas of fixed perfusion defect or scars noted. EKG gated imaging showed LV EF at 66 %, rest and stress gated EF similar visually. T. I D. ratio was 1.11. Lung heart ratio noted to be within normal limits 0.30. No significant extracardiac and abnormal radiotracer activities were noted. RV free wall uptake was noted to be WNL. IMPRESSION: Also refer to comments under nuclear interpretation. Also test results needs to be interpreted in the context of pretest probability. 1. There is no definitive scintigraphic evidence of LexiScan induced myocardial ischemia. 2. There is no definitive scintigraphic evidence of myocardial infarction/scar. 3. EKG gated imaging shows left ventricular ejection fraction of approximately 66 %. 4. Clinical correlation requested as occasionally single vessel disease or balanced ischemia could be missed. In approximately 10% of the cases Lexiscan may not cause adequate vasodilatory stress. RECOMMENDATIONS: Aggressive risk factor modification, medical therapy. Clinical correlation with echocardiogram derived ejection fraction. Inability to exercise by itself can lead to increased cardiovascular event risks. Consider cardiology consultation and or follow-up if clinically indicated. I AM AVAILABLE FOR CARDIOLOGY CONSULTATION AND FOLLOWUP IF REQUESTED BY PMD Lázaro Gan M.D., S[employer] Inventory Control Coordinator flatwork presser, Board certified in cardiovascular diseases, Nuclear cardiology, Echocardiography Cardiac CT and cardiac MRI Ph. [phone] [facility]
== END ==
LOC: RAD 08:35
PROVIDERS: ATTEND Internal Medicine Cardiovascular Disease
DX: R06.00 Dyspnea, unspecified (principal)
CPT/HCPCS: 93017; 78452; A9500; J2785; J0280; Q9969

== ENCOUNTER → 2017-02-13 | Outpatient (CLI) | payer MEDICARE ==
--- NOTE | 2017-02-13 15:26 | RADIOLOGY REPORT (SQ) ---
EXAM DESCRIPTION: CT CHEST WITHOUT COMPLETED DATE/TIME: 02/13/2017 2:36 pm REASON FOR STUDY: OPACITY OF LUNG ON IMAGING STUDY/TOBACCO ABUSE R91.8 OTHER NONSPECIFIC ABNORMAL F INDING OF LUNG FIELD F17.201 NICOTINE DEPENDENCE, UNSPECIFIED, IN REMISSION COMPARISON: CT chest 10/03/2016 TECHNIQUE: CT scan performed of the chest without intravenous contrast. Images reviewed with lung, soft tissue and bone windows. Reconstructed coronal and sagittal MPR images reviewed. All images st ored on PACS. All CT scanners at this facility use dose modulation, iterative reconstruction, and/or weight based d osing when appropriate to reduce radiation dose to as low as reasonably achievable (ALARA). [facility]: Dose Right [facility]: CareDose [facility]: Dose Right [facility]: Teradose 4D [facility]: [employer] [email or web address]) RADIATION DOSE: Up-to-date CT equipment and radiation dose reduction techniques were employed. CTDIv ol: 12.8 mGy. DLP: 499 mGy-cm. mGy. LIMITATIONS: No technical limitations. FINDINGS: LUNGS AND PLEURA: There is linear bandlike scarring in the right posterior costophrenic davidson lcus best shown on coronal images 79-88. This is in the area of very dense parenchymal consolidation on films from September 2016. Minimal lingular atelectasis coronal image 57. No fluffy alveolar infiltrates worrisome for edema or pneumonia. No worrisome pulmonary nodules. No pleural effusion. No pneumothorax. HILAR AND MEDIASTINAL STRUCTURES: No identified masses or abnormal nodes. No obvious aneurysm. HEART AND VASCULAR STRUCTURES: No aneurysm. No pericardial effusion. Very heavily calcified aortic valve. Calcified coronary arteries with radiopaque coronary stents present. UPPER ABDOMEN: No significant findings. Limited exam. THYROID AND OTHER SOFT TISSUES: No masses. No adenopathy. Mild bilateral gynecomastia. BONES: No significant finding. HARDWARE: None in the chest. OTHER: No other significant findings. IMPRESSION: Bandlike scarring or atelectasis in the right posterior costophrenic sulcus and lingula TECHNICAL DOCUMENTATION: JOB ID: [id number] Quality ID # [id number]: Final reports with documentation of one or more dose reduction techniques (e.g., Au tomated exposure control, adjustment of the mA and/or kV according to patient size, use of iterative reconstruction technique) 2010 [employer]- All Rights Reserved
== END ==
LOC: RAD 13:59
PROVIDERS: ATTEND Internal Medicine Pulmonary Disease
DX: R91.8 Other nonspecific abnormal finding of lung field (principal); F17.201 Nicotine dependence, unspecified, in remission
CPT/HCPCS: 71250